=== PATIENT | female | born 2000 | race Caucasian/White ===

== ENCOUNTER 2025-01-11 09:49 | Emergency (ER) | payer OTHER ==
[2025-01-11 11:25] LABS: BHCG - Serum Negative (NEGATIVE); Pregs Control Background? CLEAR/WHITE (CLR/WHITE); Pregs Control Bar Appear? YES (CONTROL BAR)
[2025-01-11 11:29] LABS: Bacteria/HPF None Seen HPF (None Seen); CAUTI Indications for Culture Fever or rigors; Glucose, Urine (Dipstick) Normal (Negative); Leukocyte 75 Leu/uL (Negative); Protein, Urine (Dipstick) Negative (Neg-Trace); RBC/HPF 0-3 HPF (0-3); Specific Gravity, Urine 1.035 (1.002-1.036); Urine Culture Reflex No No; WBC/HPF 0-3 HPF (0-3)
== END 2025-01-11 11:46 | disposition home or self-care (01) ==
LOC: ERS 09:49
DX: B34.9 Viral infection, unspecified (principal); F17.290 Nicotine dependence, other tobacco product, uncomplicated
CPT/HCPCS: 81001; 84703; 87081; 87428; 87430; 99283